=== PATIENT | female | born 1980 | race Caucasian/White ===

== ENCOUNTER 2023-01-29 15:47 | Outpatient (CLI) | payer OTHER, SELFPAY ==
--- NOTE | 2023-01-29 16:00 | CRLHL7_ITS ---
For Patients: As a result of the Century Cures Act, medical imaging exams and procedure reports are released immediately into your electronic medical record. You may view this report before your referring provider. If you have questions, please contact your health care provider. INDICATION: TROUBLE SWALLOWING, FEELS LIKE THYROID IS ENLARGED COMPARISON: none TECHNIQUE: Guthrie scale and color Doppler images were acquired of the thyroid gland. FINDINGS: The thyroid gland demonstrates normal uniform echogenicity and has a smooth outer contour. The right lobe measures 3.2 x 0.7 x 1.2 cm and the left lobe measures 3.7 x 0.6 x 1.3 cm in size. The isthmus measures 3 millimeters. There are no suspicious masses or nodules. The color Doppler images demonstrate normal vascularity. There is no evidence of cervical lymphadenopathy or parathyroid mass. IMPRESSION: Normal thyroid ultrasound. Dictated by Gilberto Max MD @ 01/30/2023 10:44:24 AM (Electronically Signed)
--- NOTE | 2023-01-29 16:00 | CRLHL7_ITS ---
For Patients: As a result of the Century Cures Act, medical imaging exams and procedure reports are released immediately into your electronic medical record. You may view this report before your referring provider. If you have questions, please contact your health care provider. INDICATION: Diffuse pelvic pressure TECHNIQUE: Ultrasound pelvis transabdominal and transvaginal for better assessment or to better visualize the endometrium. Real time sonographic images with Spectral and color Doppler imaging of the ovaries were obtained. COMPARISON: None FINDINGS: Uterus: 9.1 centimeter x 3.7 centimeter x 5.1 centimeter. Normal echotexture of the myometrium. No masses. Endometrium: Transvaginal imaging was performed to better evaluate the endometrium. Millimeter mm in thickness. Possible endometrial polyp. Right ovary: 3.0 centimeter x 2.0 centimeter x 2.2 centimeter. No ovarian or adnexal masses. Normal arterial and venous blood flow. Left ovary: 2.8 centimeter x 1.9 centimeter x 2.6 centimeter. No ovarian or adnexal masses. Normal arterial and venous blood flow. Cul-de-sac: No significant free fluid. IMPRESSION: Possible endometrial polyp difficult to measure accurately. Dictated by Gilberto Burkett MD @ 01/30/2023 8:30:08 AM (Electronically Signed)
== END 2023-01-29 15:48 | disposition home or self-care (01) ==
LOC: US 15:47
PROVIDERS: Visit Provider Registered Nurse
DX: R10.2 Pelvic and perineal pain (principal); E04.9 Nontoxic goiter, unspecified
CPT/HCPCS: 76536; 76830; 76856

== ENCOUNTER 2023-12-04 13:26 | Outpatient (CLI) | payer OTHER, SELFPAY ==
--- NOTE | 2023-12-04 13:40 | MM_ITS ---
Patient: SUJEY TODD Facility:?[facility] Patient ID:?[id number] Site Patient ID:?[id number]. Site :?[id number] Study:?XRay-Breast Bilateral 3D W/CAD-12/04/2023 2:42:27 PM Ordering Physician:Chasidy Final Report: BILATERAL SCREENING MAMMOGRAM WITH COMPUTER-AIDED DETECTION AND TOMOSYNTHESIS TECHNIQUE: CC and MLO views were obtained. These mammographic images have been obtained using full-field digital technique. These mammographic images were interpreted with the benefit of computer-aided detection. Breast Tomosynthesis was used in this interpretation. COMPARISON FILM: 06/12/19. FINDINGS: There are scattered areas of fibroglandular density IMPRESSION: There is no radiographic evidence for malignancy. ASSESSMENT: BI-RADS Category 1: Negative RECOMMENDATION: Routine screening mammogram in 1 year. A lay language report of this examination will be provided to the patient. Gilberto Max M.D. Diagnostic Radiologist [email or web address] Transcribed: 12:55 [email or web address]/Dictated by: Gilberto Max MD @ 12/07/2023 9:30:00 AM Signed by:?Gilberto Max MD @12/07/2023 3:02:16 PM (Electronic Signature)
== END 2023-12-04 13:27 | disposition home or self-care (01) ==
LOC: MAMMO 13:27
PROVIDERS: Visit Provider Registered Nurse
DX: Z12.31 Encounter for screening mammogram for malignant neoplasm of breast (principal)
CPT/HCPCS: 77063; 77067